=== PATIENT | male | born 2005 | race Caucasian/White ===

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

== ENCOUNTER 2024-02-10 17:47 | Emergency (ER) | payer MEDICAID, SELFPAY ==
[2024-02-10 17:48] VITALS: BP 123/53; PULSE 62; RESP 13; TEMP 36.8; O2SAT 99; BMI 23.7
--- NOTE | 2024-02-10 18:56 | HMH.EDGENADL ---
Discharge Plan Disposition Patient Disposition: Home, Self-Care Chief Complaint: Recheck/Abnormal Lab/Rx Prescriptions Prescriptions: No Action No Known Home Medications Referrals Follow up/Referrals: Adriana Mcgee APRN [Primary Care Provider] - See instructions Activity Restrictions/Add. Instructions Additional Instructions/Restrictions: Please present immediately to [facility] emergency department for continued evaluation at this time. Clinical Impressions Clinical Impression: Submandibular abscess, Cellulitis Discharge ED Provider: Hammad Nelson General Adult HPI General Chief complaint: Recheck/Abnormal Lab/Rx Stated complaint: Swollen area right lower jaw Time Seen by Provider: 02/10/24 18:20 Mode of Arrival: Ambulatory Source of Information: Patient Limitations: No Limitations Description of Symptoms (Recalled from ER Triage Doc. by RN): pt presents to ED with knot on right jaw line. pt reports he had cyst removed in pcp office on tuesday. las tnight he began to notice a knot forming and today the knot has gotten larger. History of Present Illness HPI narrative: Patient is a 18-year-old male with no pertinent past medical history. Presented to the emergency department for evaluation of a knot under his right jaw. Patient had a cyst removed from PCPs office on Tuesday, this was successful and it was sutured however over the last 24 to 48 hours he has had progression of the swelling under his suture site with oozing of blood. Due to persistent symptoms he presents here for continued evaluation. No intraoral swelling, no sublingual swelling, no other acute complaints at this time, no difficulty ranging neck. Related Data Home Medications Medication Instructions Recorded Confirmed No Known Home Medications 02/06/24 02/06/24 Allergies Allergy/AdvReac Type Severity Reaction Status Date / Time No Known Allergies Allergy Verified 02/06/24 14:55 [facility] Disclaimer: The information contained in this section may have been updated after the patient was seen, as this information can be updated by other users. Medical History (Updated 02/10/24 @ 20:23 by Hammad Nelson MD) Hx of seizure disorder Surgical History (Updated 02/06/24 @ 14:56 by Aimee Perez MA) No history of previous surgery Family History (Updated 02/06/24 @ 14:57 by Aimee Perez MA) Other No significant family history Social History (Updated 02/06/24 @ 14:57 by Aimee Perez MA) Smoking Status: Never smoker alcohol intake: current alcohol intake frequency: a few times a month current occupational status: employed Travel in the last 8 weeks: None ROS Obtained: Yes Systems reviewed as appropriate & no additional complaints except as documented Physical Exam General General appearance: alert and in no apparent distress Head Head exam: atraumatic, normocephalic and other (Swelling over the right submandibular area that is mobile, mildly tender, oozing blood through the suture line.) Eye Eye exam: Present PERRL ENT ENT exam: Present mucous membranes moist and other (No elevation of the floor of mouth, range of motion of neck preserved.) Neck Neck exam: Present normal inspection Chest Chest inspection: Present normal inspection and symmetric chest wall rise Respiratory Respiratory exam: Absent respiratory distress Cardiovascular Cardiovascular exam: Present regular rate and normal rhythm Abdominal Exam Abdominal exam: Present soft Extremities Exam Extremities exam: Present normal inspection Neurological Exam Neurological exam: Present alert Psychiatric Psychiatric exam: Present normal affect Skin Skin exam: Present warm and dry Medical Decision Making Walter Inquiry Pt receiving controlled substance: No Vital Signs: 02/10/24 17:48 Temperature 98.2 F Temperature Source Oral Pulse Rate [Left Radial] 62 Respiratory Rate 13 Blood Pressure [Right Arm] 123/53 L Blood Pressure Mean [Right Arm] 76 02 Sat by Pulse Oximetry 99 Lab Data Lab Results 02/10/24 19:17: WBC 6.9, RBC 5.19, Hgb 15.6, Hct 48.0, MCV 92.5, MCH 30.1, MCHC 32.5, RDW 13.5, Plt Count 212, MPV 9.5, Neut % (Auto) 67.7, Lymph % (Auto) 22.0, Tift % (Auto) 5.5, Eos % (Auto) 1.1, Baso % (Auto) 3.6 H, Neut # (Auto) 4.7, Lymph # (Auto) 1.5, Tift # (Auto) 0.4, Eos # (Auto) 0.1, Baso # (Auto) 0.3 H, Sodium 141, Potassium 4.0, Chloride 102, Carbon Dioxide 29, Anion Gap 14.0, BUN 20, Creatinine 1.00, Estimated Creat Clear 145, Estimated GFR 96, Est GFR ( Amer) 116, Glucose 93, Calcium 10.0 02/10/24 19:17 02/10/24 19:17 Orders (Tests/Meds): ED MEDICATIONS Generic Name Dose Route Start Last Admin Trade Name Freq PRN Reason Stop Dose Admin Ampicillin Sodium/Sulbactam 100 mls @ 200 mls/hr 02/10/24 20:05 Sodium 3 gm/ Sodium Chloride IV 02/10/24 20:06 ONCE ONE Discontinued Medications Generic Name Dose Route Start Last Admin Trade Name Freq PRN Reason Stop Dose Admin Iopamidol 75 ml 02/10/24 19:25 02/10/24 19:26 Iopamidol-370 (76%);100ml Bottle IV 02/10/24 19:26 75 ml ONCE ONE Administration Sodium Chloride 10 ml 02/10/24 19:25 02/10/24 19:26 Sodium Chloride 0.9% 10ml Syr (Rad Only) IV 02/10/24 19:26 10 ml ONCE ONE Administration ORDERS Category Date Time Status CT soft tissue neck w con Stat Cat Scan 02/10/24 18:58 Completed POCUS Point of Care (ER Only) Stat Exams 02/10/24 18:56 Taken BMP [Basic Metabolic Panel] Stat Lab 02/10/24 19:17 Completed CBC w/Auto Diff [Complete Blood Count Auto Diff] Stat Lab 02/10/24 19:17 Completed Medical Decision Narrative: In summary patient is a 18-year-old male with past medical history described above presents emergency department for evaluation of progressive swelling on his right submandibular area status post recent cyst excision. Patient is hemodynamically stable nontoxic-appearing upon arrival. Given location under his jaw ruling out spreading into the submandibular space is important although unlikely. Workup will be conducted with hematologic labs, CT neck with IV contrast. Differential includes incomplete cyst removal, hematoma, infection, among others. Workup reviewed by me, hematologic labs are nonactionable, patient has no significant leukocytosis, no MELITON or critical electrolyte abnormality. CT imaging shows abscess with cellulitic extension into the submandibular and submental space. Patient will be started on Unasyn after blood cultures were drawn. The case discussed [facility] who graciously accepted patient for transfer for continued evaluation at this time. Given that patient had no rapid progression, no elevation of the floor of his mouth during his stay in the emergency department with no airway compromise, no drooling managing his secretions it was felt that patient is appropriate for transfer via POV. Critical Care Critical Care Time Critical Care Time: No
--- NOTE | 2024-02-10 18:58 | CT_ITS ---
PROCEDURE INFORMATION: Exam: CT Neck With Contrast Exam date and time: 02/10/2024 7:23 PM Age: 18 years old Clinical indication: Mass, lump, or swelling in neck; Right; Additional info: R submandibular cyst excised with progressive swel TECHNIQUE: Imaging protocol: Computed tomography of the neck with contrast. Radiation optimization: All CT scans at this facility use at least one of these dose optimization techniques: automated exposure control; mA and/or kV adjustment per patient size (includes targeted exams where dose is matched to clinical indication); or iterative reconstruction. Contrast material: ISOVUE; Contrast volume: 75 ml; Contrast route: IV; COMPARISON: No relevant prior studies available. FINDINGS: Pharynx: Unremarkable. No significant tonsillar enlargement. Larynx: Unremarkable. Epiglottis is normal. Prevertebral and retropharyngeal spaces: Unremarkable. Salivary glands: Normal. Glands are normal in size. Thyroid: Normal. No enlarged or calcified nodules. Lymph nodes: See soft tissue section Trachea: Visualized trachea is unremarkable. Lungs: Unremarkable as visualized. Bones/joints: Unremarkable. No acute fracture. Soft tissues: Subcutaneous edema consistent with cellulitis noted within the right lateral submental space superficial to the right body ramus junction of the mandible. . Superimposed rounded lesion measuring 2.2 cm that has an inflammatory appearance with an air bubble. Could be a necrotic lymph node or abscess. Also within the right lateral submental space IMPRESSION: Subcutaneous edema consistent with cellulitis noted within the right anterior submandibular space. Superimposed rounded lesion measuring 2.2 cm that has an inflammatory appearance with an air bubble. Could be a necrotic lymph node or abscess. Also within the right lateral submental space.
[2024-02-10] MEDS: IOPAMIDOL-370 (76%);100ML BOTTLE 75 ML IV (19:26)
[2024-02-10] MEDS: SODIUM CHLORIDE 0.9% 10ML SYR (RAD ONLY) 10 ML IV (19:26)
[2024-02-10 19:28] LABS: Basophils # 0.3 K/mm3 (0-0.2); Basophils % 3.6 % (0.1-2.0); Eosinophils # 0.1 K/mm3 (0.0-0.4); Eosinophils % 1.1 % (0.1-12.0); Hemoglobin 15.6 g/dL (14.1-18.0); Lymphocytes # 1.5 K/mm3 (0.7-4.5); Mean Corpuscular HGB Conc 32.5 g/dL (31.8-35.4); Mean Corpuscular Hemoglobin 30.1 pg (27.0-31.2); Mean Corpuscular Volume 92.5 fl (80-94); Mean Platelet Volume 9.5 fl (7.4-10.4); Monocytes # 0.4 K/mm3 (0.1-1.0); Monocytes % 5.5 % (1.7-9.3); Neutrophils # 4.7 K/mm3 (1.8-7.8); Neutrophils % 67.7 % (37.0-80.0); Platelet Count 212 K/mm3 (142-424); Red Blood Count 5.19 M/mm3 (4.60-6.20); Red Cell Distribution Width 13.5 % (11.5-17.5); White Blood Count 6.9 K/mm3 (4.5-13.0)
[2024-02-10 19:31] LABS: Chloride 102 mmol/L (98-107)
[2024-02-10 19:32] LABS: Sodium 141 mmol/L (136-145)
[2024-02-10 19:34] LABS: Blood Urea Nitrogen 20 mg/dl (9-20); Creatinine Clearance Estimated 145 mL/min (50-200); Estimated Glomerular Filt Rate 96 ml/min (>60); GFR (African American) 116 ML/MIN (>60)
[2024-02-10 19:35] LABS: Carbon Dioxide 29 mmol/L (22.0-30.0); Glucose 93 mg/dl (74-100)
--- NOTE | 2024-02-10 20:17 | PC.NURSE ---
Called [facility] about pt transfer. Severo is talking to Dr Wolfe. CR
[2024-02-10] MEDS: AMPICILLIN/SULBACTAM 3 GM in 0.9 % SODIUM CHLORIDE 100 ML IV (20:37)
[2024-02-10 21:16] VITALS: BP 139/79; PULSE 70; RESP 16; TEMP 36.8; O2SAT 97
[2024-02-10 21:17] VITALS: BP 139/79; PULSE 70; RESP 16; TEMP 36.8; O2SAT 97
== END 2024-02-10 21:19 | disposition home or self-care (01) ==
PROVIDERS: Emergency Provider Emergency Medicine; PCP Nurse Practitioner Family
DX: K12.2 Cellulitis and abscess of mouth (principal); L03.811 Cellulitis of head [any part, except face]
CPT/HCPCS: 70491; 80048; 85025; 96374; 99285; Q9967

== ENCOUNTER 2025-04-24 20:24 | Emergency (ER) | payer OTHER, SELFPAY ==
[2025-04-24] VITALS (7 sets, daily range): BP systolic 126–153; BP diastolic 83–98; PULSE 51–62; RESP 16; TEMP 36.8; O2SAT 96–100; BMI 25.7
--- NOTE | 2025-04-24 20:28 | ED_ITS ---
Discharge Plan Disposition Patient Disposition: Home, Self-Care Condition: Good Prescriptions Prescriptions: New ketorolac 10 mg tablet 10 mg PO Q8H PRN (Reason: pain) 5 Days Qty: 15 0RF tamsulosin [Flomax] 0.4 mg capsule 0.4 mg PO DAILY Qty: 7 0RF ondansetron 4 mg tablet,disintegrating 4 mg PO Q8H PRN (Reason: nausea and vomiting) 4 Days Qty: 10 0RF cefadroxil 500 mg capsule 500 mg PO BID 7 Days Qty: 14 0RF Referrals Follow up/Referrals: [facility] [Provider Group, Urology] - See instructions Provider,Referral, [Referring, Medical] - See instructions Activity Restrictions/Add. Instructions Additional Instructions/Restrictions: I have sent you with Toradol which is a medication similar to Tylenol, do not take since in addition to ibuprofen naproxen or other NSAIDs. You can also take Tylenol. I will send you with a medication called Flomax which you can take daily for one week. I have also sent you with a nausea medication. Return to the emergency department if you develop fever, inability to ambulate, severe vomiting or return of severe and uncontrolled pain. Otherwise I have sent you with a referral to urology, call them to schedule an appointment or follow-up with your primary care provider. Clinical Impressions Clinical Impression: Acute flank pain Instructions Patient Instructions: DI for Acute Abdominal Pain Print Language Print Language: Kenyan Discharge ED Provider: Bushra Coyle Adult HPI <Bushra Coyle DO - Last Filed: 04/25/25 09:45> General Chief complaint: Abdominal Pain Stated complaint: vomiting,lower back pain ,burning during urination Time Seen by Provider: 04/24/25 20:28 Related Data Previous Rx's ?Medication ?Instructions ?Recorded cefadroxil 500 mg capsule 500 mg PO BID 7 days #14 cap s 04/25/25 ketorolac 10 mg tablet 10 mg PO Q8H PRN pain 5 days #15 04/25/25 tabs ondansetron 4 mg disintegrating 4 mg PO Q8H PRN nausea and 04/25/25 tablet vomiting 4 days #10 tabs tamsulosin 0.4 mg capsule (Flomax) 0.4 mg PO DAILY #7 caps 04/25/25 Allergies Allergy/AdvReac Type Severity Reaction Status Date / Time No Known Allergies Allergy Verified 02/06/24 14:55 [facility] <Bushra Coyle DO - Last Filed: 04/25/25 09:45> [facility] Disclaimer: The information contained in this section may have been updated after the patient was seen, as this information can be updated by other users. Medical History (Updated 04/25/25 @ 00:05 by Bushra Coyle DO) Hx of seizure disorder Surgical History (Updated 02/06/24 @ 14:56 by Aimee Perez MA) No history of previous surgery Family History (Updated 02/06/24 @ 14:57 by Aimee Perez MA) Other No significant family history Social History (Updated 02/06/24 @ 14:57 by Aimee Perez MA) Smoking Status: Current every day smoker tobacco type: smokeless tobacco alcohol intake: current alcohol intake frequency: a few times a month current occupational status: employed Travel in the last 8 weeks?: None Have you lived/traveled outside US in past 30 days?: No Contact w/someone who lives/traveled outside US past 30 days?: No Exposure to someone with infectious disease in past 14 days?: No Do you have a fever (greater than 100.4 F or 38 C)?: No Have you tested positive for COVID-19?: No Exposed to someone with COVID-19 in past 14 days?: No Do you have a sore throat?: No Do you have a cough?: No Do you have any weakness?: No Do you have any diarrhea?: No Are you experiencing any unusual bleeding?: No Do you have any muscle aches/pain?: No Do you have any abdominal pain?: No Are you experiencing loss of taste or smell?: No <Bushra Coyle DO - Last Filed: 04/25/25 09:45> ROS Obtained: Yes All systems reviewed & no additional complaints except as documented and Yes Systems reviewed as appropriate & no additional complaints except as documented Physical Exam <Bushra Coyle DO - Last Filed: 04/25/25 09:45> General General appearance: alert Respiratory Respiratory exam: Present normal lung sounds bilaterally Cardiovascular Cardiovascular exam: Present regular rate Neurological Exam Neurological exam: Present alert Medical Decision Making <Bushra Coyle DO - Last Filed: 04/25/25 09:45> Medical Records Screening: Per USPSTF and CDC recommendations, given the prevalence of disease in our region, it is our hospital?s policy to screen for HIV and viral Hepatitis for all patients aged 18 and over and those with ongoing risk factors. Vital Signs: 04/24/25 20:31 04/24/25 21:00 04/24/25 21:30 Temperature 98.3 F Temperature Source Oral Pulse Rate 51 L 57 L Pulse Rate [Right Radial] 56 L Respiratory Rate 16 Blood Pressure 144/90 H 141/88 H Blood Pressure [Right Arm] 153/98 H Blood Pressure Mean 108 116 Blood Pressure Mean [Right Arm] 116 Blood Pressure Source Blood Pressure Source [Right Arm] Automatic Cuff Blood Pressure Position Blood Pressure Position [Right Arm] Supine 02 Sat by Pulse Oximetry 98 100 96 Oxygen Delivery Method Room Air 04/24/25 22:01 04/24/25 22:30 04/24/25 23:00 Temperature Temperature Source Pulse Rate 57 L 53 L 59 L Pulse Rate [Right Radial] Respiratory Rate Blood Pressure 126/86 137/83 139/86 Blood Pressure [Right Arm] Blood Pressure Mean 105 Blood Pressure Mean [Right Arm] Blood Pressure Source Blood Pressure Source [Right Arm] Blood Pressure Position Blood Pressure Position [Right Arm] 02 Sat by Pulse Oximetry 97 99 97 Oxygen Delivery Method Room Air Room Air 04/24/25 23:57 04/25/25 00:00 04/25/25 00:25 Temperature 97.9 F Temperature Source Oral Pulse Rate 62 64 68 Pulse Rate [Right Radial] Respiratory Rate 16 Blood Pressure 134/85 139/85 139/85 Blood Pressure [Right Arm] Blood Pressure Mean Blood Pressure Mean [Right Arm] Blood Pressure Source Automatic Cuff Blood Pressure Source [Right Arm] Blood Pressure Position Supine Blood Pressure Position [Right Arm] 02 Sat by Pulse Oximetry 100 100 Oxygen Delivery Method Room Air Room Air Room Air Lab Data Lab Results 04/24/25 20:41: WBC 3.8 L, RBC 4.78, Hgb 14.6, Hct 43.5, MCV 91.0, MCH 30.5, MCHC 33.6, RDW 11.9, Plt Count 179, MPV 11.5 H, Neut % (Auto) 51.7, Lymph % (Auto) 29.4, [place] % (Auto) 18.0 H, Eos % (Auto) 0.3, Baso % (Auto) 0.3, Neut # (Auto) 2.0, Lymph # (Auto) 1.1, [place] # (Auto) 0.7, Eos # (Auto) 0.0, Baso # (Auto) 0.0, Sodium 142, Potassium 3.8, Chloride 104, Carbon Dioxide 30, Anion Gap 11.8, BUN 15, Creatinine 1.10, Estimated Creat Clear 137, Estimated GFR 85, Est GFR ( Amer) 103, Glucose 99, Calcium 9.3, Magnesium 2.0, Total Bilirubin 0.7, AST 28, ALT 17, Alkaline Phosphatase 59, Total Protein 6.9, Albumin 4.9, Globulin 2.0, Albumin/Globulin Ratio 2.5 H, Lipase 58, HCV Ab BISI w/Rflx PCR Qn Negative, HIV Ag/Ab Combo Qual Negative 04/24/25 23:18: Urine Color Yellow, Urine Appearance Sl cloudy, Urine pH 8.5, Ur Specific [place] 1.010, Urine Protein Trace, Urine Glucose (UA) Negative, Urine Ketones Negative, Urine Blood Trace-l, Urine Nitrate Negative, Urine Bilirubin Negative, Urine Urobilinogen 2.0, Ur Leukocyte Esterase Negative, Urine RBC 20- 50, Urine WBC Occasional, Ur Squamous Epith Cells Occasional, Amorphous Sediment 3+, Urine Bacteria 2+ 04/24/25 20:41 04/24/25 20:41 Orders (Tests/Meds): ED MEDICATIONS Discontinued Medications Generic Name Dose Route Start Last Admin Trade Name Freq PRN Reason Stop Dose Admin Sodium Chloride 1,000 mls @ 999 mls/hr 04/24/25 20:41 04/24/25 20:52 Sod Chlor 0.9% 1000ml Bag IV 04/24/25 21:41 999 mls/hr .Q1H1M ONE Administration Iopamidol 75 ml 04/24/25 21:13 04/24/25 21:14 Iopamidol-370 (76%);100ml Bottle IV 04/24/25 21:14 75 ml ONCE ONE Administration Ketorolac Tromethamine 30 mg 04/24/25 20:41 04/24/25 20:52 Ketorolac 30mg/Ml Vial IV 04/24/25 20:42 30 mg ONCE ONE Administration Morphine Sulfate 4 mg 04/24/25 21:46 04/24/25 21:50 Morphine 4mg/Ml Syringe IV 04/24/25 21:47 4 mg ONCE ONE Administration Ondansetron HCl 4 mg 04/24/25 20:41 04/24/25 20:52 Ondansetron 4mg/2ml Vial IV 04/24/25 20:42 Not Given ONCE ONE Sodium Chloride 10 ml 04/24/25 21:13 04/24/25 21:14 Sodium Chloride 0.9% 10ml Syr (Rad Only) IV 05/24/25 21:12 10 ml NEEDED PRN Administration Maintain IV Site ORDERS Category Date Time Status CT abdomen pelvis w con Stat Cat Scan 04/24/25 20:40 Completed CBC [Complete Blood Count Auto Diff] Stat Lab 04/24/25 20:41 Completed Comprehensive Metabolic Panel Stat Lab 04/24/25 20:41 Completed HIV Combo Stat Lab 04/24/25 20:41 Completed Hepatitis C Ab Qual. W/ RFX Stat Lab 04/24/25 20:41 Completed Lipase Stat Lab 04/24/25 20:41 Completed Magnesium Stat Lab 04/24/25 20:41 Completed Urinalysis and Microscopic Stat Lab 04/24/25 23:18 Completed Urine Chlam/Gono/Trich, TIFF Stat Lab 04/24/25 23:18 Received Urine Culture Stat Micro 04/24/25 23:18 Received Medical Decision Narrative: patient is a 19-year-old male presenting to the emergency department for evaluation of left lower back pain, low abdominal pain and burning with urination for 2 days. He says initially it was on and off but then an hour ago he started vomiting over and over and the pain got worse. Patient is hemodynamically stable and nontoxic-appearing upon arrival, afebrile. Differential diagnosis includes kidney stone, UTI, Pyelo, among others. Workup will be conducted with hematologic labs, CT scan. Initial inventions include crystalloid bolus, analgesics. Initial workup reviewed by me hematologic labs are remarkable for normal white count, normal liver and kidney function. uBshra Coyle DO Took over the care of this patient at 10 PM. Patient's CBC showed no leukocytosis, hemoglobin was stable. CMP was unremarkable. Patient's UA did show bacteria, red blood cells. CT scan did not show any evidence of ureteral stones on radiology read however there may be a possible left ureteral stone on my interpretation. Patient's urine was also sent for chlamydia and gonorrhea as well as trichomonas. At this time, patient was sent home with Flomax, Toradol as well as antibiotics. Was sent with urology follow-up and patient was discharged home in stable condition, return precautions were discussed. <Chelsey Morrissey (ED), CAREER MANAGER - Last Filed: 04/24/25 21:47> Walter Inquiry Pt receiving controlled substance: No Walter was queried for this patient: No Vital Signs: 04/24/25 20:31 04/24/25 21:00 04/24/25 21:30 Temperature 98.3 F Temperature Source Oral Pulse Rate 51 L 57 L Pulse Rate [Right Radial] 56 L Respiratory Rate 16 Blood Pressure 144/90 H 141/88 H Blood Pressure [Right Arm] 153/98 H Blood Pressure Mean 108 116 Blood Pressure Mean [Right Arm] 116 Blood Pressure Source Blood Pressure Source [Right Arm] Automatic Cuff Blood Pressure Position Blood Pressure Position [Right Arm] Supine 02 Sat by Pulse Oximetry 98 100 96 Oxygen Delivery Method Room Air 04/24/25 22:01 04/24/25 22:30 04/24/25 23:00 Temperature Temperature Source Pulse Rate 57 L 53 L 59 L Pulse Rate [Right Radial] Respiratory Rate Blood Pressure 126/86 137/83 139/86 Blood Pressure [Right Arm] Blood Pressure Mean 105 Blood Pressure Mean [Right Arm] Blood Pressure Source Blood Pressure Source [Right Arm] Blood Pressure Position Blood Pressure Position [Right Arm] 02 Sat by Pulse Oximetry 97 99 97 Oxygen Delivery Method Room Air Room Air 04/24/25 23:57 04/25/25 00:00 04/25/25 00:25 Temperature 97.9 F Temperature Source Oral Pulse Rate 62 64 68 Pulse Rate [Right Radial] Respiratory Rate 16 Blood Pressure 134/85 139/85 139/85 Blood Pressure [Right Arm] Blood Pressure Mean Blood Pressure Mean [Right Arm] Blood Pressure Source Automatic Cuff Blood Pressure Source [Right Arm] Blood Pressure Position Supine Blood Pressure Position [Right Arm] 02 Sat by Pulse Oximetry 100 100 Oxygen Delivery Method Room Air Room Air Room Air Lab Data Lab Results 04/24/25 20:41: WBC 3.8 L, RBC 4.78, Hgb 14.6, Hct 43.5, MCV 91.0, MCH 30.5, MCHC 33.6, RDW 11.9, Plt Count 179, MPV 11.5 H, Neut % (Auto) 51.7, Lymph % (Auto) 29.4, [place] % (Auto) 18.0 H, Eos % (Auto) 0.3, Baso % (Auto) 0.3, Neut # (Auto) 2.0, Lymph # (Auto) 1.1, [place] # (Auto) 0.7, Eos # (Auto) 0.0, Baso # (Auto) 0.0, Sodium 142, Potassium 3.8, Chloride 104, Carbon Dioxide 30, Anion Gap 11.8, BUN 15, Creatinine 1.10, Estimated Creat Clear 137, Estimated GFR 85, Est GFR ( Amer) 103, Glucose 99, Calcium 9.3, Magnesium 2.0, Total Bilirubin 0.7, AST 28, ALT 17, Alkaline Phosphatase 59, Total Protein 6.9, Albumin 4.9, Globulin 2.0, Albumin/Globulin Ratio 2.5 H, Lipase 58, HCV Ab BISI w/Rflx PCR Qn Negative, HIV Ag/Ab Combo Qual Negative 04/24/25 23:18: Urine Color Yellow, Urine Appearance Sl cloudy, Urine pH 8.5, Ur Specific [place] 1.010, Urine Protein Trace, Urine Glucose (UA) Negative, Urine Ketones Negative, Urine Blood Trace-l, Urine Nitrate Negative, Urine Bilirubin Negative, Urine Urobilinogen 2.0, Ur Leukocyte Esterase Negative, Urine RBC 20- 50, Urine WBC Occasional, Ur Squamous Epith Cells Occasional, Amorphous Sediment 3+, Urine Bacteria 2+ Orders (Tests/Meds): ED MEDICATIONS Discontinued Medications Generic Name Dose Route Start Last Admin Trade Name Freq PRN Reason Stop Dose Admin Sodium Chloride 1,000 mls @ 999 mls/hr 04/24/25 20:41 04/24/25 20:52 Sod Chlor 0.9% 1000ml Bag IV 04/24/25 21:41 999 mls/hr .Q1H1M ONE Administration Iopamidol 75 ml 04/24/25 21:13 04/24/25 21:14 Iopamidol-370 (76%);100ml Bottle IV 04/24/25 21:14 75 ml ONCE ONE Administration Ketorolac Tromethamine 30 mg 04/24/25 20:41 04/24/25 20:52 Ketorolac 30mg/Ml Vial IV 04/24/25 20:42 30 mg ONCE ONE Administration Morphine Sulfate 4 mg 04/24/25 21:46 04/24/25 21:50 Morphine 4mg/Ml Syringe IV 04/24/25 21:47 4 mg ONCE ONE Administration Ondansetron HCl 4 mg 04/24/25 20:41 04/24/25 20:52 Ondansetron 4mg/2ml Vial IV 04/24/25 20:42 Not Given ONCE ONE Sodium Chloride 10 ml 04/24/25 21:13 04/24/25 21:14 Sodium Chloride 0.9% 10ml Syr (Rad Only) IV 05/24/25 21:12 10 ml NEEDED PRN Administration Maintain IV Site ORDERS Category Date Time Status CT abdomen pelvis w con Stat Cat Scan 04/24/25 20:40 Completed CBC [Complete Blood Count Auto Diff] Stat Lab 04/24/25 20:41 Completed Comprehensive Metabolic Panel Stat Lab 04/24/25 20:41 Completed HIV Combo Stat Lab 04/24/25 20:41 Completed Hepatitis C Ab Qual. W/ RFX Stat Lab 04/24/25 20:41 Completed Lipase Stat Lab 04/24/25 20:41 Completed Magnesium Stat Lab 04/24/25 20:41 Completed Urinalysis and Microscopic Stat Lab 04/24/25 23:18 Completed Urine Chlam/Gono/Trich, TIFF Stat Lab 04/24/25 23:18 Received Urine Culture Stat Micro 04/24/25 23:18 Received Medical Decision Narrative: patient is a 19-year-old male presenting to the emergency department for evaluation of left lower back pain, low abdominal pain and burning with urination for 2 days. He says initially it was on and off but then an hour ago he started vomiting over and over and the pain got worse. Patient is hemodynamically stable and nontoxic-appearing upon arrival, afebrile. Differential diagnosis includes kidney stone, UTI, Pyelo, among others. Workup will be conducted with hematologic labs, CT scan. Initial inventions include crystalloid bolus, analgesics. Initial workup reviewed by me hematologic labs are remarkable for normal white count, normal liver and kidney function. [Imaging informally interpreted by me and remarkable for:] [Formal imaging read remarkable for:] Upon repeat evaluation [patient's pain is improved, appears better perfused, appears the same, appears worse, etc.]. Due to this [additional interventions, patient is appropriate for discharge, patient requires admission, etc.]. Critical Care <Bushra Coyle DO - Last Filed: 04/25/25 09:45> Critical Care Time Critical Care Time: No
--- OUTSIDE RECORDS SUMMARY | 2025-04-24 20:29 | XMS_ITS | Clinical Summary ---
[facility] [address] [place] [address] Care Team Providers Care Staffing Manager Name Role Phone Provider, No Known Primary Care Provider Unavail able Allergies No known active allergies Medications No known medications Social History Tobacco Use Types Packs/Day Years Used Date Smoking Tobacco: Never Smokeless Tobacco: Never Tobacco Cessation:Counseling Given: Not Answered Alcohol Use Standard Drinks/Week Comments Not Currently 0 (1 standard drink = 0.6 oz pur e alcohol) Sex and Gender Information Value Date Recorded Sex Assigned at Not on file Legal Sex Male 12:16 PM EDT Gender Identity Not on file Sexual Orientation Not on file Last Filed Vital Signs Vital Sign Reading Time Taken Comments Blood Pressure 130/84 01/08/2025 5:51 PM EDT Pulse 94 01/08/2025 5:51 PM EDT Temperature 36.5 C (97.7 F) 01/08/2025 5:51 PM EDT Respiratory Rate 16 01/08/2025 5:51 PM EDT Oxygen Saturation 99% 01/08/2025 5:51 PM EDT Inhaled Oxygen Concentration - - Weight 90.7 kg (200 lb) 01/08/2025 5:51 PM EDT Height 188 cm (6' 2 ) 01/08/2025 5:51 PM EDT Body Mass Index 25.68 01/08/2025 5:51 PM EDT Plan of Treatment Health Maintenance Due Date Last Done Comments ANNUAL PHYSICAL 2004 HPV VACCINES (1 - Male 3-dose series) 2019 COVID-19 Vaccine (3 - season) 2024 06/18/2021, 05/28/2021 INFLUENZA VACCINE 07/03/2025 TDAP/TD VACCINES (2 - Td or Tdap) 04/21/2026 04/21/2016 Pneumococcal Vaccine 0-49 Aged Out 2004, 02/26/2005, 2004, Additional history exists No longer eligible based on patient's age to complete this topic MENINGOCOCCAL VACCINE Completed 11/02/2021, 016 MENINGOCOCCAL B VACCINE Completed 01/26/2022, 11/02 HEPATITIS C SCREENING Completed 02/11/2024 [facility] Care Teams Staffing Manager Relationship Specialty Start Date End Date Provider, No Known [facility] [place] [place] [address] PCP - General 01/08/25
--- OUTSIDE RECORDS SUMMARY | 2025-04-24 20:29 | XMS_ITS | Clinical Summary ---
Author Organization Healthcare Address [address] [place] [address] Care Team Providers Care Set Up Mechanic [employer] Name Role Phone Pcp, No Primary Care Provider Unavailabl e Allergies No known active allergies Family History Medical History Relation Name Comments Seizures Brother Conversions - Other Father Healthy adolescent Hyperlipidemia Father Thyroid disease Father Conversions - Other Mother Healthy adolescent Relation Name Status Comments Brother Father Mother Social History Tobacco Use Types Packs/Day Years Used Date Smoking Tobacco: Never Alcohol Use Standard Drinks/Week Comments No 0 (1 standard drink = 0.6 oz pur e alcohol) Sex and Gender Information Value Date Recorded Sex Assigned at Not on file Legal Sex Male 6:28 PM EDT Gender Identity Not on file Sexual Orientation Not on file Last Filed Vital Signs Vital Sign Reading Time Taken Comments Blood Pressure 122/69 02/13/2024 10:46 AM EDT Pulse 67 02/13/2024 10:46 AM EDT Temperature 36.7 C (98.1 F) 02/11/2024 2:50 AM EDT Respiratory Rate 16 02/11/2024 2:50 AM EDT Oxygen Saturation 97% 02/13/2024 10:46 AM EDT Inhaled Oxygen Concentration - - Weight 86.7 kg (191 lb 2.2 oz) 02/13/2024 10:46 AM EDT Height 190.5 cm (6' 3 ) 02/13/2024 10:46 AM EDT Body Mass Index 23.89 02/13/2024 10:46 AM EDT Plan of Treatment Health Maintenance Due Date Last Done Comments Dental Prophylaxis 2004 Dental X-Ray: Bitewings 2004 Dental X-Ray: Full Mouth 2004 [facility]-Depression Screening 2004 [facility]-Infant/Child/Adol SDOH Screenings 2004 HPV Vaccines (1 - Male 3-dose series) 2019 [facility]- SDOH Screenings 2022 [facility]-Adult SDOH Screenings 2022 [id number] Vaccine (3 - season) 2024 06/18/2021, 05/28/2021 Dental Oral Exam 08/16/2024 02/13/2024 [facility]-Influenza Vaccine (#1) 2025 [facility]-DTaP,Tdap,and Td Vaccines (7 - Td or Tdap) 04/21/2026 04/21/2016, 09/04/2008, 12/03/2005, Additional history exists [facility]-Zoster Vaccines (1 of 2) 2054 04/21/2016, 09/04/2008, 09/03/2005 [facility]-Hepatitis B Vaccines Completed 005, 2004, 2004 [facility]-Pneumococcal Vaccine: Pediatrics (0 to 5 Years) and At-Risk Patients (6 to 49 Years) Aged Out 09/03/2005, 02/26/2005, 2004, Additional history exists No longer eligible based on patient's age to complete this topic [facility]-HIB Vaccines Completed 12/03/2005, , 2004, Additional history exists [facility]-Hepatitis A Vaccines Completed 10/06/2006, 11/2005 [facility]-IPV Vaccines Aged Out 09/04/2008, , 2004, Additional history exists No longer eligible based on patient's age to complete this topic [facility]-Varicella Vaccines Completed 6, 09/04/2008, 09/03/2005 [facility]-HIV Screening Completed 02/11/2024 [facility]-Hepatitis C Screening Completed 02/11/2024 [facility]-Rotavirus Vaccines Aged Out No lo nger eligible based on patient's age to complete this topic Procedures Procedure Name Priority Date/Time Associated Diagnosis Comments COMPREHENSIVE ORAL EVALUATION - NEW OR ESTABLISHED PATIENT Routine 02/13/2024 10:30 AM EDT Cyst, dermoid, face HEPATITIS C ANTIBODY - ED W/REFLEX TO HCV QUANT PCR STAT 02/11/2024 12:32 AM EDT ED HIV 1/2 ANTIBODY/ANTIGEN SCREEN WITH REFLEX TO HIV I/II DIFFERENTIATION STAT 02/11/2024 12:32 AM EDT from Last 3 Months or Most Recently Relevant to Health Maintenance Results * ED HIV 1/2 Antibody/Antigen Screen w/Reflex to HIV 1/2 Differentiation (02/11/2024 12:32 AM EDT) Pathologist [facility] HIV 1 & 2 Antibody/Antigen Screen Non Reactive Non Reactive 02/11/2024 1:29 AM EDT [facility] Comment:Screening for HIV 1 & 2 antibodies, and P24 antigen is NONREACTIVE. No confirmatory testing is required. Blood Venous blood specimen / Unknown Venipuncture / Unknown 02/11/2024 12:32 AM EDT 02/11/2024 12:48 AM EDT Luca Finch MD LAB BLOOD ORDERABLES Final Re sult Performing Organization Address [facility] Co de Phone Number HEALTHCARE [facility] [address] [place] [address] * Hepatitis C Antibody - ED (02/11/2024 12:32 AM EDT) Pathologist [facility] Hepatitis C Antibody Negative Negative 02/11/2024 1:27 AM EDT [facility] Blood Venous blood specimen / Unknown Venipuncture / Unknown 02/11/2024 12:32 AM EDT 02/11/2024 12:48 AM EDT Luca Finch MD LAB BLOOD ORDERABLES Final Re sult Performing Organization Address [facility] Co de Phone Number [facility] [address] [place] [address] from Last 3 Months or Most Recently Relevant to Health Maintenance Insurance [employer] Care Teams Set Up Mechanic [employer] Relationship Specialty Start Date End Date Pcp, Aleshia [address] [place] [address] PCP - General Family Medicine 02/13/24
--- NOTE | 2025-04-24 20:40 | CT_ITS ---
PROCEDURE INFORMATION: Exam: CT Abdomen And Pelvis With Contrast Exam date and time: 04/24/2025 9:12 PM Age: 19 years old Clinical indication: Abdominal pain and other: Lower back pain; Additional info: Low back pain TECHNIQUE: Imaging protocol: Computed tomography of the abdomen and pelvis with contrast. Radiation optimization: All CT scans at this facility use at least one of these dose optimization techniques: automated exposure control; mA and/or kV adjustment per patient size (includes targeted exams where dose is matched to clinical indication); or iterative reconstruction. Contrast material: ISOVUE; Contrast volume: 75 ml; Contrast route: IV; COMPARISON: No relevant prior studies available. FINDINGS: Liver: Normal. No mass. Gallbladder and biliary ducts: Normal. No calcified stones. No ductal dilation. Pancreas: Normal. No ductal dilation. Spleen: Normal. No splenomegaly. Adrenal glands: Normal. No mass. Kidneys and ureters: Normal. No hydronephrosis. Stomach and bowel: Unremarkable. No obstruction. No mucosal thickening. Appendix: No evidence of appendicitis. Intraperitoneal space: Unremarkable. No free air. No significant fluid collection. Vasculature: Unremarkable. No abdominal aortic aneurysm. Lymph nodes: Left upper quadrant small bowel thickening with multiple prominent mesenteric nodes measuring greater than 5 mm in short axis can be seen with mild infectious or inflammatory enteritis. Urinary bladder: Unremarkable as visualized. Reproductive: Unremarkable as visualized. Bones/joints: Moderate loss of intervertebral disc space with degenerative changes involving L5-S1. The vertebral bodies are maintained in height and alignment. No evidence of acute osseous abnormality. Soft tissues: Normal. IMPRESSION: 1. Left upper quadrant small bowel thickening with multiple prominent mesenteric nodes measuring greater than 5 mm in short axis can be seen with mild infectious or inflammatory enteritis. 2. Moderate loss of intervertebral disc space with degenerative changes involving L5-S1. 3. No evidence of acute osseous abnormality.
[2025-04-24 20:48] LABS: Hematocrit 43.5 % (42.0-52.0); Hemoglobin 14.6 g/dL (14.1-18.0); Immature Granulocytes % 0.3 %; Mean Corpuscular HGB Conc 33.6 g/dL (31.8-35.4); Mean Corpuscular Hemoglobin 30.5 pg (27.0-31.2); Mean Corpuscular Volume 91.0 fl (80-94); Nucleated Red Blood Cells % 0 %; Platelet Count 179 K/mm3 (142-424); Red Blood Count 4.78 M/mm3 (4.60-6.20); Red Cell Distribution Width-SD 39.7 fL; White Blood Count 3.8 K/mm3 (4.5-13.0)
[2025-04-24] MEDS: 0.9 % SODIUM CHLORIDE 1000ML 1,000 ML 999 ML IV (20:52)
[2025-04-24] MEDS: KETOROLAC 30MG/ML VIAL 30 MG IV (20:52)
[2025-04-24 20:56] LABS: Lipase 58 U/L (23-300); Magnesium 2.0 mg/dl (1.6-2.3)
[2025-04-24 20:57] LABS: Alanine Aminotransferase 17 U/L (12-78); Albumin Level 4.9 g/dl (3.5-5.0); Albumin/Globulin Ratio 2.5 (1.1-1.8); Alkaline Phosphatase 59 U/L (38-126); Anion Gap 11.8 mEq/L (5-15); Aspartate Amino Transferase 28 U/L (17-59); Bilirubin,Total 0.7 mg/dl (0.2-1.3); Blood Urea Nitrogen 15 mg/dl (9-20); Calcium 9.3 mg/dl (8.4-10.2); Carbon Dioxide 30 mmol/L (22.0-30.0); Chloride 104 mmol/L (98-107); Creatinine Clearance Estimated 137 mL/min (50-200); Creatinine,Serum 1.10 mg/dl (0.66-1.25); Estimated Glomerular Filt Rate 85 ml/min (>60); GFR (African American) 103 ML/MIN (>60); Globulin 2.0 g/dL (1.3-3.2); Glucose 99 mg/dl (74-100); Potassium 3.8 mmoL/L (3.5-5.1); Sodium 142 mmol/L (136-145); Total Protein,Serum 6.9 g/dl (6.3-8.2)
[2025-04-24] MEDS: IOPAMIDOL-370 (76%);100ML BOTTLE 75 ML IV (21:14)
[2025-04-24] MEDS: SODIUM CHLORIDE 0.9% 10ML SYR (RAD ONLY) 10 ML IV (21:14)
[2025-04-24] MEDS: MORPHINE 4MG/ML SYRINGE 4 MG IV (21:50)
[2025-04-24 21:53] LABS: Hepatitis C Ab Qual. W/ RFX NEGATIVE (Negative)
[2025-04-24 23:22] LABS: Microscopic, Urine URINE MICROSCOPIC (MICROSCOPIC)
[2025-04-24 23:24] LABS: Bilirubin,Urine Negative (Negative); Color,Urine YELLOW (Yellow); Glucose,Urine (UA) Negative (Negative); Ketones,Urine Negative (Negative); Leukocyte Esterase,Urine Negative (Negative); PH,Urine 8.5 (5.0-8.5); Protein,Urine TRACE (Negative); Specific Gravity, Urine 1.010 (1.005-1.030); Urobilinogen,Urine 2.0 EU/dl (0.2)
[2025-04-24 23:47] LABS: Amorphous Sediment,Urine 3+ /lpf; Bacteria,Urine 2+ /lpf; RBC,Urine 20-50 #/hpf (0-3); Squamous Epithelial Cell,Urine Occasional #/hpf (0-5); WBC,Urine Occasional #/hpf (0-3)
[2025-04-25] VITALS: BP 139/85; PULSE 64; O2SAT 100
[2025-04-25 00:25] VITALS: BP 139/85; PULSE 68; RESP 16; TEMP 36.6; O2SAT 98
--- NOTE | 2025-04-27 08:53 | PC.NURSE ---
Urine culture results reviewed by Dr. Hoff. No new orders received.
== END 2025-04-25 00:26 | disposition home or self-care (01) ==
PROVIDERS: Emergency Medicine; Nurse Practitioner; Emergency Provider Student in an Organized Health Care Education/Training Program; PCP Family Medicine
DX: R10.9 Unspecified abdominal pain (principal); F17.200 Nicotine dependence, unspecified, uncomplicated
CPT/HCPCS: 74177; 80053; 81001; 83690; 83735; 85025; 86803; 87086; 87389; 87491; 87591; 87661; 96361; 96374; 96375; 99285; J1885; J2270; J7030; Q9967